=== PATIENT | female | born 1970 | race Hispanic/Latino ===

== ENCOUNTER 2018-04-30 14:02 | Outpatient (CLI) | payer BC | END 2018-04-30 14:03 | disposition home or self-care (01) | LOC: C.MAMMO 14:02 | DX: Z12.31 Encounter for screening mammogram for malignant neoplasm of breast (principal) ==

== ENCOUNTER 2018-06-24 14:46 | Outpatient (CLI) | payer BC | END 2018-06-24 14:47 | disposition home or self-care (01) | LOC: C.USIC 14:46 | DX: Z30.431 Encounter for routine checking of intrauterine contraceptive device (principal) ==